=== PATIENT | male | born 1980 | race Caucasian/White ===

== ENCOUNTER 2017-09-26 00:04 | Emergency (ER) | payer OTHER ==
[~2017-09-26] VITALS: Ht 182.9 cm; Wt 127.0 kg
[2017-09-26 00:05] VITALS: BP 163/94
[2017-09-26] MEDS: DIAZEPAM 5 MG TAB PO ONE (00:10)
[2017-09-26] MEDS: DIAZEPAM PFS 10 MG/2 ML SYR IM ONE (00:10)
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
--- NOTE | 2017-09-26 00:36 | NUR ---
PT OLVIN BLS. TAKEN TO BED 10
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
[2017-09-26] MEDS: HALOPERIDOL IM 5 MG/ML VIAL IM ONE (00:41)
[2017-09-26] MEDS: diphenhydrAMINE 50 MG/ML VIAL IM ONE (00:41)
--- NOTE | 2017-09-26 00:45 | NUR ---
RECEIVED VERBAL ORDER FROM DR CARMEN TO HOLD VALIUM ORDER, SEE MAR
--- NOTE | 2017-09-26 00:50 | NUR ---
ER MD CARMEN REEVALUATING PT
--- NOTE | 2017-09-26 02:00 | NUR ---
Patient appears to be resting comfortably in bed. Vital Signs within normal limits. Respirations even and unlabored.
--- NOTE | 2017-09-26 03:00 | NUR ---
Patient appears to be resting comfortably in bed. Vital Signs within normal limits. Respirations even and unlabored.
--- NOTE | 2017-09-26 04:00 | NUR ---
Patient appears to be resting comfortably in bed. Vital Signs within normal limits. Respirations even and unlabored.
--- NOTE | 2017-09-26 05:00 | NUR ---
Patient appears to be resting comfortably in bed. Vital Signs within normal limits. Respirations even and unlabored.
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
[2017-09-26 06:21] VITALS: BP 118/72
== END 2017-09-26 06:10 | disposition home or self-care (01) ==
LOC: MED 00:04
DX: F10.129 Alcohol abuse with intoxication, unspecified (principal)
CPT/HCPCS: 96372; 99284; G0482; J1200; J1630

== ENCOUNTER 2019-01-19 01:15 | Emergency (ER) | payer OTHER ==
[~2019-01-19] VITALS: Ht 180.3 cm; Wt 99.8 kg
--- NOTE | 2019-01-19 01:15 | NUR ---
PT OLVIN BLS. TAKEN TO BED 6
--- NOTE | 2019-01-19 01:16 | NUR ---
PT LEFT ER
--- NOTE | 2019-01-19 01:17 | NUR ---
PATIENT LEFT WITHOUT BEING SEEN BY DR. VERMA. NO FURTHER CARE PROVIDED FOR PATIENT.
--- NOTE | 2019-01-19 01:36 | NUR ---
[place] [employer] OFFICER SPEAKING WITH PATIENT AT THE ER PARKING LOT
--- NOTE | 2019-01-19 01:59 | NUR ---
CHECKED AGAIN AT ER PARKING LOT. [place] [employer] AND PT NO LONGER ON PREMISES. JERI JOSE CALLLED [facility] FOR FOLLOW UP AND WAS TOLD OFFICER RELEASED PATIENT AFTER ADVISEMENT FROM [place] [employer] WHO INITIATED PLACING PATIENT ON A 5150 HOLD
== END 2019-01-19 01:59 | disposition left against medical advice (07) ==
LOC: MED 01:15
DX: R45.851 Suicidal ideations (principal); R44.0 Auditory hallucinations; Z53.21 Procedure and treatment not carried out due to patient leaving prior to being seen by health care provider

== ENCOUNTER 2020-05-27 15:11 | Emergency (ER) | payer OTHER ==
[~2020-05-27] VITALS: Ht 170.2 cm; Wt 117.9 kg
[2020-05-27 15:14] VITALS: BP 131/101
--- NOTE | 2020-05-27 15:20 | NUR ---
PT BIBA FOR PRE-BOOK. PT PRESENTS WITH EXCESSIVE AND AGGRESIVE SPEECH. MULTIPLE ABRASIONS NOTICED ON PT'S SCOTT LEGS AND PT DOES NOT KNOW WHAT CAUSED THE ABRASIONS, PT STATES "I WOKE UP WITH THOSE." PT IS AFEBRILE BUT DIAPHORETIC UPON ASSESSMENT. NO COUGH, FEVER, VOMITING, OR RESPIRATORY DISTRESS NOTICED. PATIENT STATES PAIN OF 0/10 AT THIS TIME; VSS; PATIENT POSITIONED FOR COMFORT; HOB ELEVATED; BEDRAILS UP X2; BED DOWN. ER MD MADE AWARE OF PT STATUS. PD ARE AT BEDSIDE.
[2020-05-27] MEDS ORDERED: NACL 0.9% 2,000 ML IV ONE (15:25)
--- NOTE | 2020-05-27 16:00 | NUR ---
PT PULLED OUT HIS IV BY USING HIS MOUTH. GAUZE PLACED ON IV INSERTION AREA TO STOP BLEEDING.
[2020-05-27 16:03] VITALS: BP 142/78
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
== END 2020-05-27 16:03 ==
LOC: EDUNIT# 15:11 → MED 15:11 → EDBD 15:11 → MED 16:03
DX: U07.1 COVID-19 (principal); F10.10 Alcohol abuse, uncomplicated; R73.9 Hyperglycemia, unspecified; Z02.89 Encounter for other administrative examinations; Z98.890 Other specified postprocedural states
CPT/HCPCS: 87426; 96360; 99285; J7030; 99283